=== PATIENT | female | born 1930 | race Two or more races ===

== ENCOUNTER 2018-04-15 22:13 | Emergency (ER) | payer MEDICARE, BC ==
[~2018-04-15] VITALS: Ht 175.3 cm; Wt 72.6 kg
--- NOTE | 2018-04-15 22:35 | NUR ---
BBSELF FROM HOME C/C "WHILE TAKING OFF MY SWEATER, LOST BALANCE AND HIT HEAD ON FLOOR". PT DENIES KO. CONTUSION NOTED ON HEAD. PT DENIES ANY OTHER TRAUMA. PT IS AAOX4. SKIN WARM AND DRY. NO S/S OF ACUTE DISTRESS NOTED. 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 PT SAFETY AND COMFORT MEASURES IN PLACE. BEDSIDE FOR EVAL.
[2018-04-15] MEDS ORDERED: HYDROCODONE/APAP 5/325MG 1 EACH TABLET ONE (23:10)
[2018-04-15] MEDS ORDERED: HYDROCODONE/APAP 5/325MG 1 EACH TABLET PO ONE (23:30)
[2018-04-16 00:26] VITALS: BP 137/72
== END 2018-04-16 00:28 | disposition home or self-care (01) ==
LOC: ER 22:15
DX: S09.8XXA Other specified injuries of head, initial encounter (principal); S59.801A Other specified injuries of right elbow, initial encounter; M54.2 Cervicalgia; M25.511 Pain in right shoulder; I10 Essential (primary) hypertension; K21.9 Gastro-esophageal reflux disease without esophagitis; H40.9 Unspecified glaucoma; E78.5 Hyperlipidemia, unspecified; I49.8 Other specified cardiac arrhythmias; W18.39XA Other fall on same level, initial encounter; Y93.89 Activity, other specified; Y92.098 Other place in other non-institutional residence as the place of occurrence of the external cause; Y99.8 Other external cause status
CPT/HCPCS: 70450; 72125; 73030; 73080; 99284; A4606; Z7610